=== PATIENT | female | born 1980 | race Caucasian/White ===

== ENCOUNTER 2018-03-25 17:23 | Emergency (ER) | payer OTHER ==
[2018-03-25] MEDS: NS 1,000 ML IV (16:34)
[2018-03-25] MEDS: ASPIRIN 81 MG CHEW TABLET PO (16:45)
[2018-03-25] MEDS: METOCLOPRAMIDE INJ 10MG/2ML VIAL (J2765) IV (16:45)
[2018-03-25 17:19] LABS: BASO # 0.1 10^3/uL (0.0-0.2); BASO % 1.1 % (0.0-1.0); EOS # 0.1 10^3/uL (0.0-0.50); EOS % 1.7 % (0.0-3.0); HEMATOCRIT 41.8 % (36.0-47.0); HEMOGLOBIN 14.4 g/dl (12.0-15.5); IMMATURE GRANULOCYTE % 0.1 % (0-3.0); LYMPH # 1.8 10^3/uL (1.5-4.5); LYMPH % 25.5 % (24.0-44.0); MEAN CORPUSCULAR HGB CONC 34.4 g/dl (32.0-36.5); MEAN CORPUSCULAR VOLUME 89.9 fl (80.0-96.0); MONO # 0.5 10^3/uL (0.0-0.8); MONO % 7.3 % (0.0-5.0); NEUTROPHILS # 4.6 10^3/uL (1.8-7.7); NEUTROPHILS % 64.3 % (36.0-66.0); PLATELET COUNT, AUTOMATED 572 10^3/uL (150-450); RED BLOOD COUNT 4.65 10^6/uL (4.00-5.40); RED CELL DISTRIBUTION WIDTH 12.3 % (11.5-14.5); WHITE BLOOD COUNT 7.2 10^3/uL (4.0-10.0)
[2018-03-25 17:30] LABS: ANION GAP 4 MEQ/L (8-16); BLOOD UREA NITROGEN 10 MG/DL (7-18); CALCIUM LEVEL 9.1 MG/DL (8.5-10.1); CARBON DIOXIDE LEVEL 29 MEQ/L (21-32); CHLORIDE LEVEL 107 MEQ/L (98-107); CK-MB VALUE MASS < 1.0 NG/ML (<3.6); CPK CREATINE PHOSPHOKINASE 64 U/L (26-192); CREATININE FOR GFR 0.91 MG/DL (0.55-1.30); GLOMERULAR FILTRATION RATE > 60.0 (>60); GLUCOSE, FASTING 83 MG/DL (70-100); MB/CK RELATIVE INDEX 1.56 (< OR =4); POTASSIUM SERUM 4.5 MEQ/L (3.5-5.1); SODIUM LEVEL 140 MEQ/L (136-145); TROPONIN I < 0.02 NG/ML (< 0.10)
[2018-03-25 17:36] LABS: INR 1.08; PROTHROMBIN TIME 14.1 SECONDS (12.4-14.5)
[2018-03-25 17:38] LABS: D-DIMER QUANT 296.8 ng/ml (<500)
== END 2018-03-25 18:22 | disposition left against medical advice (07) ==
LOC: M ED 17:23
DX: R07.9 Chest pain, unspecified (principal); Z82.49 Family history of ischemic heart disease and other diseases of the circulatory system
CPT/HCPCS: J2765

== ENCOUNTER 2018-08-27 11:59 | Day surgery (SDC) | payer OTHER ==
[2018-08-27] MEDS: NS 1,000 ML IV (07:00)
[~2018-08-27 11:59] MED LIST: LIDOCAINE 2% INJ 100 MG/5 ML SDV (FOR ANES.) As Ordered; PROPOFOL 200 MG/20 ML VIAL As Ordered
[2018-08-27] MEDS ORDERED: PROPOFOL 200 MG/20 ML VIAL As Ordered (14:12)
== END 2018-08-27 15:06 | disposition home or self-care (01) ==
LOC: M OPP 15:06
DX: R10.84 Generalized abdominal pain (principal); K59.00 Constipation, unspecified; D12.4 Benign neoplasm of descending colon; K63.89 Other specified diseases of intestine; Q43.8 Other specified congenital malformations of intestine; Z87.19 Personal history of other diseases of the digestive system; R19.7 Diarrhea, unspecified; K29.70 Gastritis, unspecified, without bleeding; E03.9 Hypothyroidism, unspecified; K58.9 Irritable bowel syndrome, unspecified; D47.1 Chronic myeloproliferative disease; R06.02 Shortness of breath; F41.9 Anxiety disorder, unspecified; F32.9 Major depressive disorder, single episode, unspecified; R51 Headache; F90.9 Attention-deficit hyperactivity disorder, unspecified type; G47.30 Sleep apnea, unspecified; R06.83 Snoring; K21.9 Gastro-esophageal reflux disease without esophagitis; Z79.82 Long term (current) use of aspirin; Z79.899 Other long term (current) drug therapy
CPT/HCPCS: 45385

== ENCOUNTER → 2019-03-30 | Outpatient (CLI) | payer OTHER ==
[~2019-03-30] MED LIST changes: +ASPI81CH33 PO; +CONC36TA4 PO; +LAMO100T80 PO; +LEXA1TAB PO; -LIDOCAINE 2% INJ 100 MG/5 ML SDV (FOR ANES.) As Ordered; +LINZ145C PO; +MULT1TAB10 PO; +PROHANCE 279.3MG/ML 15ML VIAL (A9576) As Ordered ONE; +PROHANCE 279.3MG/ML 5ML VIAL (A9576) As Ordered ONE; -PROPOFOL 200 MG/20 ML VIAL As Ordered; +THYR15TA PO; +TRAZ-160 PO
--- NOTE | 2019-03-31 09:23 | REP ---
MRI PELVIS WITH AND WITHOUT CONTRAST: (Attention to sacroiliac joints). Multiple sequences obtained in the axial, coronal and sagittal planes prior to and following the intravenous administration of 18 mL ProHance. I do not see MR evidence of significant arthritic change at the sacroiliac joints bilaterally. No abnormal marrow signal is seen in the sacrum or adjacent iliac bones, with no evidence of sacroiliitis. No definite bony bridging is seen at these joints. No abnormal enhancement is seen at these joints. A tiny amount of free fluid in the pelvis is likely physiologic. No abnormality is seen of the visualized soft tissues. IMPRESSION: No MRI abnormality of the sacroiliac joints. No evidence of sacroiliitis. Electronically Signed by Uriel Higuera MD 03/31/2019 04:10 P
== END ==
LOC: M RAD 16:17
PROVIDERS: ATTEND General Practice
DX: Z87.39 Personal history of other diseases of the musculoskeletal system and connective tissue (principal)
CPT/HCPCS: 72197; A9576

== ENCOUNTER → 2019-06-03 | Outpatient (CLI) | payer OTHER ==
[~2019-06-03] MED LIST changes: -PROHANCE 279.3MG/ML 15ML VIAL (A9576) As Ordered ONE; -PROHANCE 279.3MG/ML 5ML VIAL (A9576) As Ordered ONE; -TRAZ-160 PO; +TRAZ-252 PO
--- NOTE | 2019-06-06 23:06 | ECWPNPC ---
PATIENT NAME: BRY VELOZ : 1980 GENDER: FEMALE VISIT DATE: 06/03/2019 DISCHARGE DATE: 06/03/19 1257 VISIT LOCKED DATE TIME: PHYSICIAN: JOSIAH AIKEN MD RESOURCE: JOSIAH AIKEN MD REASON FOR APPOINTMENT 1. CHRONIC JOINT PAIN HISTORY OF PRESENT ILLNESS PAIN SCREENING: PATIENT HAS A COMPLAINT OF ACUTE OR CHRONIC PAIN :YES 38 YEAR OLD FEMALE PATIENT WITH A HISTORY OF CHRONIC LOW BACK PAIN. THE PATIENT DESCRIBES THE PAIN SHARP, STABBING, SHOOTING, AND CONTINUOUS WITH A PAIN SCORE OF 4-8/10 DEPENDING ON PHYSICAL ACTIVITY. THE PATIENT SAYS HER PAIN STARTS IN HER LOW BACK AREA AND RADIATES DOWN HER LEFT LEG. THE PATIENT SAYS THAT SHE HAS HAD THIS PAIN FOR ABOUT 8 MONTHS, BUT IT HAS WORSENED OVER THE PAST COUPLE MONTHS. PATIENT DENIES UNEXPLAINABLE WEIGHT LOSS, FEVER, CHILLS, NEW CHANGES ON HER URINARY OR BOWEL CONTROL. FALL RISK SCREENING: SCREENING :NO FALLS REPORTED IN THE LAST YEAR CURRENT MEDICATIONS TAKING ARMOUR THYROID 90 MG TABLET TABLET ON AN EMPTY STOMACH ORALLY ONCE A DAY TAKING ASPIRIN 81 81 MG TABLET CHEWABLE 1 TABLET ORALLY ONCE A DAY TAKING BENZOYL PEROXIDE CLEANSER 6 % LIQUID 1 APPLICATION TO AFFECTED AREA EXTERNALLY ONCE A DAY TAKING BUSPIRONE HCL 15 MG TABLET 1 TABLET ORALLY TWICE A DAY TAKING CITALOPRAM HYDROBROMIDE 20 MG TABLET 1 TABLET ORALLY ONCE A DAY TAKING LAMOTRIGINE 100 MG TABLET 1 TABLET ORALLY ONCE A DAY TAKING LUNESTA 3 MG TABLET 1 TABLET IMMEDIATELY BEFORE BEDTIME ORALLY ONCE A DAY TAKING MINOCYCLINE HCL 100 MG CAPSULE 1 CAPSULE ORALLY EVERY 12 HRS TAKING MULTIVITAMIN ADULTS - TABLET DIRECTED ORALLY TAKING PLAQUENIL 200 MG TABLET DIRECTED ORALLY BID TAKING LINZESS 145 MCG CAPSULES 1 CAPSUL P.O. DAILY TAKING TURMERIC 500 MG CAPSULE DIRECTED ORALLY TAKING XIIDRA 5 % SOLUTION 1 DROP INTO AFFECTED EYE OPHTHALMIC TWICE A DAY TAKING CONCERTA 36 MG TABLET EXTENDED RELEASE 1 TABLET IN THE MORNING ORALLY ONCE A DAY NOT-TAKING DIPHENHYDRAMINE HCL 25 MG CAPSULE 1 CAPSULE NEEDED ORALLY EVERY 8 HRS NOT-TAKING CHOLECALCIFEROL 33210 UNIT CAPSULE 1 CAPSULE ORALLY WEEKLY NOT-TAKING ZANAFLEX 4 MG TABLET 1 TABLET NEEDED ORALLY THREE TIMES A DAY MEDICATION LIST REVIEWED AND RECONCILED WITH THE PATIENT PAST MEDICAL HISTORY LOW BACK PAIN SYSTEMIC LUPUS ERYTHEMATOUS KEMI'S DISEASE ESSENTIAL THROMBOCYTOPENIA DEPRESSION/ANXIETY IBS ALLERGIES N.K.D.A. SURGICAL HISTORY TONSILLECTOMY NEUROFIBROMATOSIS [place] 1991 FAMILY HISTORY FATHER: ALIVE, DIAGNOSED WITH HYPERTENSION MOTHER: ALIVE SIBLINGS: ALIVE 2 BROTHER(S) , 1 SISTER(S) - HEALTHY. SOCIAL HISTORY GENERAL: TOBACCO USE ARE YOU A:NONSMOKER PAIN CLINIC PFS, CLERGY, PUBLIC HEALTH REFERRALS HAS THE PATIENT BEEN EDUCATED REGARDING HIS/HER PLAN OF CARE?YES HAS THE PATIENT BEEN EDUCATED REGARDING PAIN, THE RISK FOR PAIN, THE IMPORTANCE OF EFFECTIVE PAIN MANAGEMENT, AND THE PAIN ASSESSMENT PROCESS?YES LATEX QUESTIONNAIRE LATEX ALLERGY : HAVE YOU EVER DEVELOPED ANY TYPE OF REACTION AFTER HANDLING LATEX PRODUCTS SUCH RUBBER GLOVES, CONDOMS, DIAPHRAGMS, BALLOONS, SOCKS, OR UNDERWEAR?NO LATEX ALLERGY : HAVE YOU EVER DEVELOPED ANY TYPE OF REACTION DURING OR AFTER DENTAL APPOINTMENT, VAGINAL/RECTAL EXAMINATION, SURGICAL PROCEDURE, OR ANY OTHER EXPOSURE?NO LATEX RISK : HAVE YOU EVER HAD ANY DIFFICULTY BREATHING OR HIVES AFTER EATING OR HANDLING ANY FRUITS, OR VEGETABLES; SUCH KIWI, BANANAS, STONE FRUITS, OR CHESTNUTSNO LATEX RISK : DO YOU HAVE A PREVIOUS PERSONAL HISTORY OF MORE THAN NINE SURGERIES, SPINA BIFIDA, OR REPEATED CATHERTIZATIONS? NO LATEX RISK : ARE YOU FREQUENTLY EXPOSED TO LATEX PRODUCTS IN YOUR OCCUPATION?NO DATE ASKED : 06/03/2019 CAFFEINE CAFFEINE USE?YES 1 CUP COFFEE/DAY ADVANCE DIRECTIVE ADVANCE DIRECTIVE DISCUSSED WITH PATIENT:YES HCP IS ANYA [phone] DIET: REGULAR. BAPTIST [id number] TAOISM LANGUAGE LANGUAGES SPOKEN:IVORIAN DOMESTIC VIOLENCE DO YOU FEEL SAFE IN YOUR ENVIRONMENT?YES RECREATIONAL DRUG USE DRUG USE?NO OCCUPATION: ACTIVE DUTY. LEARNING BARRIERS / SPECIAL NEEDS BARRIERS TO LEARNING?NO HEARING IMPAIRED?NO VISION IMPAIRED?YES WEARS GLASSES OR CONTACTS COGNITIVELY IMPAIRED?NO PT HAS HX OF ADHD READINESS TO LEARN?YES LEARNING PREFERENCES?NO LEARNING CAPABILITIES PRESENT?YES EMOTIONAL BARRIERS?NO SPECIAL DEVICES?NO TRAINING SPECIALIST NEEDED?NO REVIEWED WITH PT 06/03/19 1140 LAS. HOSPITALIZATION/MAJOR DIAGNOSTIC PROCEDURE NO HOSPITALIZATION HISTORY. REVIEW OF SYSTEMS REVIEWED BY: PROVIDER: JOSIAH AIKEN MD . CONSTITUTIONAL: ANY CHANGE IN YOUR MEDICAL CONDITION? YES RECENTLY DIAGNOSED WITH KEMI'S, LUPUS . CHILLS NO . FEVER NO . INFECTION: DO YOU HAVE NEW INFECTIONS? NO . DO YOU HAVE HISTORY OF MRSA? NO . MUSCULOSKELETAL: ANY NEW PATTERNS OF PAIN OR NUMBNESS? YES PT REPORTS PAIN IS NOW RADIATING DOWN HER LEFT LEG . SYTEMIC LUPUS NO . GASTROENTEROLOGY: ANY NEW CHANGE IN BOWEL CONTROL? HX IBS, H PYLORI . BARRETTS ESOPHAGUS NO . CIRRHOSIS NO . HEPATITIS NO . LIVER FAILURE NO . ACID REFLUX NO . UNEXPLAINED WEIGHT LOSS NO . GENITOURINARY: ANY NEW CHANGE IN BLADDER CONTROL? NO . IS THERE A CHANCE YOU COULD BE ? NO . HEMATOLOGY/LYMPH: DO YOU TAKE ANY BLOOD THINNERS? (FOR EXAMPLE- COUMADIN, PLAVIX, AGGRENOX, PLATEL, PRADAXA, OR XARELTO) NO . WHEN WAS YOUR LAST DOSE? DATE: TIME: . LOW PLATELET COUNT YES ESSENTIAL THROMBOCYTOPENIA . SICKLE CELL DISEASE NO . VON WILLIEBRANDS NO . FACTOR V LEIDEN NO . THALLASEMIA NO . ANEMIA NO . EASY BRUISING NO . NEUROLOGY: HAVE YOU FALLEN IN THE PAST 12 MONTHS? PT ROLLED HER ANKLE AND FELL, DENIES INJURY . ANY NEW EXTREMITY NUMBNESS OR WEAKNESS? NO . HEAD INJURY NO . DEMENTIA NO . CEREBRAL PALSY NO . MULTIPLE SCLEROSIS NO . DIZZINESS NO . HEADACHE NO . STROKES NO . VERTIGO NO . CARDIOLOGY: DO YOU HAVE A PACEMAKER OR DEFIBRILLATOR? NO . ANGINA NO . HEART ATTACK NO . HEART SURGERY NO . CONGESTIVE HEART FAILURE/FLUID OVERLOAD NO . CHEST PAIN NO . HIGH BLOOD PRESSURE NO . IRREGULAR HEART BEAT NO . RESPIRATORY: HAVE YOU BEEN SICK IN THE PAST WEEK? NO . FEVER NO . FLU LIKE SYMPTOMS? NO . CPAP NO . BYPAP NO . ASTHMA NO . EMPHYSEMA NO . CHRONIC LUNG DISEASES NO . SHORTNESS OF BREATH ON EXERTION YES SEES [employer] REPRESENTATIVE . COUGH NO . SNORING NO . INTEGUMENTARY: DO YOU HAVE ANY RASHES OR OPEN SORES? NO . ALLERGIC/IMMUNO: ARE YOU ALLERGIC TO IV DYE? NO . ANY NEW ALLERGIES? NO . PSYCHIATRIC: DO YOU HAVE THOUGHTS OF HURTING YOURSELF OR SOMEONE ELSE? NO . ARE YOU ABUSED, NEGLECTED, OR IN AN UNSAFE ENVIRONMENT? NO . ENDOCRINOLOGY: ARE YOU DIABETIC? NO . THYROID DISORDER YES KEMI'S DISEASE . OTHER: DO YOU NEED ANY PRESCRIPTIONS? NO . IF YES, PLEASE LIST: ____ . ANY NEW PROBLEMS WITH YOUR MEDICATIONS? NO . WHEN DID YOU LAST EAT? ____ . WHEN DID YOU LAST DRINK? ____ . WHAT DID YOU LAST DRINK? ____ . NAME OF PERSON DRIVING YOU HOME? ____ . DO YOU HAVE ANY OTHER QUESTIONS OR CONCERNS NO . VITAL SIGNS WT 209 LBS, HT 5'9", BMI 30.86 INDEX, BP 120/77 MM HG, HR 91 /MIN, RR 18 /MIN, TEMP 98.6 F, OXYGEN SAT % 97%, SAFE IN ENV? (Y/N) YES, NA INITIALS AW 1057, REVIEWED BY: PHYLLIS. EXAMINATION GENERAL EXAMINATION: PATIENT IS ALERT O X 3 AND COOPERATIVE. LUNGS CLEAR, TO AUSCULTATION. HEART: NO MURMURS OR GALLOPS; FACIAL CRANIAL NERVES ARE GROSSLY NORMAL. GOOD SYMMETRY OF FACIAL MUSCLE MOVEMENT. NORMAL VISUAL REICH. PATIENT IS LIMPING FROM HER LEFT LEG. TENDERNESS IN THE LOW BACK AREA AND OVER THE LEFT BUTTOCK AREA NEAR THE PIRIFORMIS MUSCLE. LEFT LEG IS WEAKER AT EXTENSION AND FLEXION. STRAIGHT LEG RAISE OF THE LEFT LEG INCREASES LEFT BUTTOCK PAIN AND CAUSES NUMBNESS IN THE LEFT FOOT. MRI OF THE LUMBAR SPINE DONE ON 05/30/2019 SHOWS A DISC PROTRUSION AT L4-L5 WITH COMPRESSION OVER THE NERVE OF L5 AND A BULGING DISC AT L5-S1. ASSESSMENTS INTERVERTEBRAL DISC DISORDER WITH RADICULOPATHY OF LUMBAR REGION - M51.16 (PRIMARY) LOW BACK PAIN - M54.5 OTHER CHRONIC PAIN - G89.29 R/O LEFT PIRIFORMIS PAIN SYNDROME. TREATMENT INTERVERTEBRAL DISC DISORDER WITH RADICULOPATHY OF LUMBAR REGION CLINICAL NOTES: WE DISCUSSED SEVERAL ISSUES WITH MRS. VELOZ'S PAIN MANAGEMENT CASE. DUE TO THE LUMBAR RADICULOPATHY, I WOULD LIKE TO MOVE FORWARD WITH A LUMBAR EPIDURAL STEROID INJECTION AT THIS TIME. WE DISCUSSED THE BENEFITS, RISKS, AND ALTERNATIVES OF THE INJECTION AND THE PATIENT WOULD LIKE TO PROCEED. I WOULD LIKE TO GET A CLEARANCE FROM THE PATIENT'S TAX SERVICES INTERN AND SPEAK WITH HIM PRIOR TO THE INJECTION. THE PATIENT WILL FOLLOW UP A FEW WEEKS AFTER THE INJECTION. INSTRUCTIONS WERE GIVEN, QUESTIONS WERE ANSWERED, PATIENT REPORTS UNDERSTANDING AND AGREES WITH THE PLAN. I, CARMEN DIAZ, DOCUMENTED THE ABOVE INFORMATION ACTING A SCRIBE FOR DR. AIKEN. I HAVE REVIEWED THE ABOVE DOCUMENT, WRITTEN BY CARMEN ANTHONY AND I VERIFY THAT IT IS ACCURATE. DEAR THEE LANZA:THANK YOU FOR YOUR KIND REFERRAL OF MRS. VELOZ. IF YOU WANT TO DISCUSS HER CASE WITH ME PLEASE CALL ME AT THE PAIN CENTER AT [phone]. SINCERELY,JOSIAH AIKEN, [facility] . PREVENTIVE MEDICINE PAIN CLINIC TEACHING: PROCEDURE TEACHING PRE-PROCEDURE INSTRUCTIONS DISCUSSED WITH PT. VERBALIZED UNDERSTANDING.. PROCEDURE CODES FA211 ESTABILISHED PATIENT [facility] CHARGE [id number] CURRENT MEDS W/DOSAGES DOCUMENTED G8730 PAIN ASSESS POS TOOL F/U PLAN DOC DISPOSITION & COMMUNICATION FOLLOW UP REQUESTING AUTH ELECTRONICALLY SIGNED BY JOSIAH AIKEN MD, MD ON 06/06/2019 AT 01:36 PM EDT DISCLAIMER : THIS IS A VISIT SUMMARY EXTRACTED FROM THE [employer] CHART. IT IS NOT A COPY OF THE [employer] PROGRESS NOTE. MTDD
== END ==
LOC: M PAIN 11:00
PROVIDERS: ATTEND Anesthesiology
DX: G89.29 Other chronic pain (principal); M51.16 Intervertebral disc disorders with radiculopathy, lumbar region; M54.5 Low back pain; M32.9 Systemic lupus erythematosus, unspecified; F32.9 Major depressive disorder, single episode, unspecified; F41.9 Anxiety disorder, unspecified; K58.9 Irritable bowel syndrome, unspecified; E06.3 Autoimmune thyroiditis; D69.3 Immune thrombocytopenic purpura; Z79.82 Long term (current) use of aspirin; Z79.899 Other long term (current) drug therapy

== ENCOUNTER 2020-05-15 10:43 | Day surgery (SDC) | payer OTHER ==
[~2020-05-15] VITALS: Ht 175.3 cm; Wt 89.4 kg
[~2020-05-15 10:43] MED LIST changes: +AMBI12.52 PO; +CIPROFLOXACIN 400 MG in IV 1 EA IV ONE; +CLON1TAB17 PO; +COQ1200C3 PO; +ENOXAPARIN 40MG/0.4ML SYRINGE (J1650 PER 10MG) SC ONE; +FISH1000 PO; +GNP250TA9 PO; +HYDR200T3 PO; +HYDR500C3 PO; +LIDO1CRE2 EX; +LIDOCAINE 1% MDV 20ML VIAL SQ PRN; +MILK140C PO; +MULTCAP PO; +OMEP40CA97 PO; +PRIS50TA PO; +PROAAER10 INH; +VOLT1GEL15 TD
[2020-05-15 11:15] LABS: BASO # 0.1 10^3/uL (0.0-0.2); BASO % 1.2 % (0.0-1.0); EOS # 0.2 10^3/uL (0.0-0.5); EOS % 2.6 % (0.0-3.0); HEMATOCRIT 40.5 % (36.0-47.0); HEMOGLOBIN 13.6 g/dl (12.0-15.5); LYMPH # 1.9 10^3/uL (1.5-5.0); LYMPH % 29.4 % (24.0-44.0); MEAN CORPUSCULAR HEMOGLOBIN 34.5 pg (27.0-33.0); MEAN CORPUSCULAR HGB CONC 33.6 g/dl (32.0-36.5); MEAN CORPUSCULAR VOLUME 102.8 fl (80.0-96.0); MONO # 0.7 10^3/uL (0.0-0.8); MONO % 11.2 % (0.0-5.0); NEUTROPHILS # 3.6 10^3/uL (1.5-8.5); NEUTROPHILS % 55.3 % (36.0-66.0); PLATELET COUNT, AUTOMATED 407 10^3/uL (150-450); RED BLOOD COUNT 3.94 10^6/uL (4.00-5.40); WHITE BLOOD COUNT 6.4 10^3/uL (4.0-10.0)
[2020-05-15 11:32] LABS: HCG, SERUM QUALITATIVE NEGATIVE (NEGATIVE)
[2020-05-15] MEDS ORDERED: LR 1,000 ML IV ONE (12:15)
[2020-05-15] MEDS ORDERED: PYRI1TAB5 PO (12:29)
[2020-05-15] MEDS ORDERED: SCOP1PAT2 TOP (12:30)
[2020-05-15 12:43] LABS: APPEARANCE, URINE CLEAR (CLEAR); BACTERIA, URINE AUTO 1+ (NEGATIVE); BILIRUBIN, URINE AUTO NEGATIVE (NEGATIVE); BLOOD, URINE BLOOD 3+ (NEGATIVE); COLOR, URINE AMBER (YELLOW); GLUCOSE, URINE (UA) AUTO NEGATIVE (NEGATIVE); KETONE, URINE AUTO NEGATIVE (NEGATIVE); LEUKOCYTE ESTERASE, URINE AUTO 1+ (NEGATIVE); NITRITE, URINE AUTO POSITIVE (NEGATIVE); PROTEIN, URINE AUTO NEGATIVE (NEGATIVE); RBC, URINE AUTO 15 /HPF (0-3); SPECIFIC GRAVITY URINE AUTO 1.006 (1.002-1.035); SQUAMOUS EPITHELIAL CELL UR AU 1 /HPF (0-6); WBC, URINE AUTO 8 /HPF (0-3)
[2020-05-15] MEDS ORDERED: MIDAZOLAM INJ 2MG/2ML VIAL (J2250 PER 1MG) As Ordered ONE ×2 (13:18→15:25)
[2020-05-15] MEDS ORDERED: ePHEDrine SULFATE 25 MG/5 ML(5MG/ML) SYRINGE As Ordered ONE ×2 (13:19→16:08)
[2020-05-15] MEDS ORDERED: fentaNYL 100 MCG/2 ML INJECTION (J3010) As Ordered ONE (13:19)
[2020-05-15] MEDS ORDERED: PHENYLephrine 500MCG 5ML (100MCG/ML) SYRINGE As Ordered ONE (13:19)
[2020-05-15] MEDS ORDERED: ONDANSETRON 4MG/2ML VIAL As Ordered ONE (13:20)
[2020-05-15] MEDS ORDERED: KETOROLAC 60MG 2ML VIAL As Ordered ONE (13:20)
[2020-05-15] MEDS ORDERED: propofoL 200 MG/20 ML VIAL As Ordered ONE (13:20)
[2020-05-15] MEDS ORDERED: LIDOCAINE 2% 100MG/5ML SDV (FOR ANES.) As Ordered ONE (13:20)
[2020-05-15] MEDS ORDERED: dexameTHASONE 4 MG/ML 1ML VIAL (J1100 PER 1MG) As Ordered ONE (13:20)
[2020-05-15] MEDS ORDERED: LIDOCAINE 1% MDV 20ML VIAL As Ordered ONE (14:27)
[2020-05-15] MEDS ORDERED: [UNRECOGNIZED DRUG - MIXTURE] XX ONE (15:00)
[2020-05-15] MEDS ORDERED: ACETAMINOPHEN 1000MG 100ML IV BTL (OFIRMEV) (J0131 PER 10MG) As Ordered ONE (16:15)
[2020-05-15] MEDS ORDERED: SILVER NITRATE APPLICATOR As Ordered ONE (16:27)
--- NOTE | 2020-05-15 16:49 | ROOPDOC ---
[facility] Report Of Operation Report of Operation DATE OF PROCEDURE: 05/15/20 PREPROCEDURE DIAGNOSES: 1. Metromenorrhagia. 2. Interstitial cystitis/bladder pain. POSTPROCEDURE DIAGNOSES: Same. PROCEDURE: 1. Pudendal nerve block. 2. Diagnostic cystoscopy with hydrodistention and instillation medication (40,000 units of heparin, 20 mL's of 8.4% sodium bicarbonate, 20 mL's of 1% lidocaine, and Solu-Medrol 250 mg), 3. Diagnostic hysteroscopy. 4. Myosure endometrial curettage. SURGEON: Kayla Mcdonnell MD ADMINISTRATIVE ASSOCIATE: None ANESTHESIA: LMA. ESTIMATED BLOOD LOSS: Approximately 25 mL. IV fluids: 400 mL's lactated Ringer's Urine output: Not recorded COMPLICATIONS: None. REMARKS: Findings of a normal size anteverted uterus and left adnexa was mildly enlarged to approximately 3 cm and normal right adnexa. Bladder had multiple petechiae and 2 diverticuli without masses or polyps in the bladder dome Bilateral sides, normal urethra. Intrauterine. There was minimal amount of endometrium and no masses or polyps. Bilateral osteotomy visualized and appeared patent. DESCRIPTION OF PROCEDURE: Patient was brought back to the operating room where anesthesia was induced without difficulties. Patient was placed in a dorsal lithotomy position, draped and prepped in usual sterile fashion. Patients right ischial spine was palpated and approximately 1 cm inferior to the spine a Botox needle was placed and a total of 10 mL of 0.5% Marcaine was then injected to the space. This was repeated on patients left side and the needle was removed. Withdrawal was always performed prior to injection to ensure no blood was withdrawn. A 30 5 mm cystoscope was then advanced to the urethra under hydrodistention until the internal urethral sphincter was identified. Hydrodistention was then stopped to look for closure of the sphincter. Then hydrodistention was restarted and entry into the bladder was performed. The bladder was then emptied and a total of 500 mL of sterile water was then placed within the bladder. A total of 2 minutes was timed and waited to complete the hydrodistention of the bladder. Then 250 mL was evacuated. The bladder was examined with the above findings. Instillation of medication, as mentioned above, was then injected through the cystoscope into the bladder followed by approximately 30 mL of sterile water. The cystoscope was then removed. A weighted speculum was placed within the vagina with a right angle retractor and the anterior lip of the cervix was grasped with a single-tooth tenaculum. The cervix was then gently dilated without difficulty to a 16 curved Persaud dil ator. Speculum was then removed. A 0 5 mm hysteroscope was then assembled and machine was primed and white balance. Advanced into the cervical canal with hydrodistention and under direct visualization. Under direct visualization it was moved through the cervical canal into the uterus with the above findings. At that time, it was decided to use the myosure device. The suction was removed from the hysteroscope and the myosure reach was inserted into the hysteroscope but not quite into the uterus. The hysteroscope was backed into the lower end of the lower uterine segment or panoramic view. The myosure device was then used to take a sampling in multiple strips going from the fundus towards the internal os of the cervix (but not quite to that area, ending in the lower uterine segment). This was started in the right posterior cornual and then carried out with a total of 4 on the posterior portion of the uterus. Then a total of 1 strips were taken on patient's right lateral wall and a total of 4 strips were taken on agents anterior wall of the uterus. Another 1 strips were taken on patient's left lateral wall to complete the sampling. The uterus was then examined for any areas that were missed and sampling was taken from those areas. The uterus was then irrigated and suctioned for further inspection. At all times during the sampling was the device watched with the camera and not removed without direct visualization to avoid perforation. All water was then evacuated under suction and the hysteroscope was removed. Water deficit was calculated to be 350 cc total. Tenaculum was then removed and cervix inspected and hemostasis achieved from tenaculum site with pressure from a sponge stick. Lap, instrument, needle count was correct 2. Patient was in stable condition to the recovery room. Kayla Mcdonnell MD May 15, 2020 16:49
[2020-05-15] MEDS ORDERED: PERCOCET 5MG/325MG TAB PO PRN (17:00)
[2020-05-15] MEDS ORDERED: LR 1,000 ML IV SCH ×2 (17:00)
[2020-05-15] MEDS ORDERED: METOCLOPRAMIDE INJ 10MG/2ML VIAL (J2765 PER 1) IV PRN (17:00)
[2020-05-15] MEDS ORDERED: fentaNYL 100 MCG/2 ML INJECTION (J3010) IV PRN (17:00)
[2020-05-15] MEDS ORDERED: ONDANSETRON 4MG/2ML VIAL IV PRN (17:00)
[2020-05-15 18:23] VITALS: BP 110/68
== END 2020-05-15 18:30 | disposition home or self-care (01) ==
LOC: M SDC 10:43
PROVIDERS: ATTEND Obstetrics & Gynecology
DX: N92.1 Excessive and frequent menstruation with irregular cycle (principal); N30.10 Interstitial cystitis (chronic) without hematuria; G43.909 Migraine, unspecified, not intractable, without status migrainosus; G47.30 Sleep apnea, unspecified; K21.9 Gastro-esophageal reflux disease without esophagitis; K58.8 Other irritable bowel syndrome; Z86.711 Personal history of pulmonary embolism; F32.9 Major depressive disorder, single episode, unspecified; F41.9 Anxiety disorder, unspecified; E03.9 Hypothyroidism, unspecified; Z79.899 Other long term (current) drug therapy
CPT/HCPCS: 36415; 52260; 58558; 81001; 84703; 85025; 88305; J0131; J0744; J1100; J1650; J1885; J2250; J2370; J2405; J3010

== ENCOUNTER 2021-04-10 14:55 | Emergency (ER) | payer OTHER ==
[~2021-04-10] VITALS: Ht 175.3 cm; Wt 86.4 kg
[~2021-04-10 14:55] MED LIST changes: -CIPROFLOXACIN 400 MG in IV 1 EA IV ONE; -ENOXAPARIN 40MG/0.4ML SYRINGE (J1650 PER 10MG) SC ONE; -LIDOCAINE 1% MDV 20ML VIAL SQ PRN; +PYRI1TAB5 PO; +SCOP1PAT2 TOP
[2021-04-10 15:18] VITALS: BP 144/88
[2021-04-10 16:22] LABS: HEMATOCRIT 43.7 % (36.0-47.0); HEMOGLOBIN 14.7 g/dl (12.0-15.5); MEAN CORPUSCULAR HEMOGLOBIN 31.7 pg (27.0-33.0); MEAN CORPUSCULAR HGB CONC 33.6 g/dl (32.0-36.5); MEAN CORPUSCULAR VOLUME 94.4 fl (80.0-96.0); PLATELET COUNT, AUTOMATED 499 10^3/uL (150-450); RED BLOOD COUNT 4.63 10^6/uL (4.00-5.40); WHITE BLOOD COUNT 5.6 10^3/uL (4.0-10.0)
[2021-04-10] MEDS ORDERED: CONC27TA4 (16:22)
[2021-04-10] MEDS ORDERED: SYNT125T (16:22)
[2021-04-10] MEDS ORDERED: TRAZ-252 (16:22)
[2021-04-10] MEDS ORDERED: LINZ145C (16:22)
[2021-04-10 16:40] LABS: AMPHETAMINES LEVEL URINE NEGATIVE (NEGATIVE); BARBITURATES URINE NEGATIVE (NEGATIVE); BENZODIAZEPINES URINE NEGATIVE (NEGATIVE); CANNABINOIDS URINE NEGATIVE (NEGATIVE); COCAINE METABOLITE URINE NEGATIVE (NEGATIVE); METHADONE URINE NEGATIVE (NEGATIVE); OPIATES URINE NEGATIVE (NEGATIVE); PHENCYCLIDINE URINE NEGATIVE (NEGATIVE)
[2021-04-10 16:50] LABS: ACETAMINOPHEN LEVEL < 2.0 UG/ML (10.0-30.0); ALBUMIN 4.4 GM/DL (3.2-5.2); ALT/SGPT 29 U/L (12-78); BILIRUBIN,DIRECT 0.2 MG/DL (0.0-0.2); BILIRUBIN,TOTAL 0.5 MG/DL (0.2-1.0); BLOOD UREA NITROGEN 6 MG/DL (7-18); CALCIUM LEVEL 9.3 MG/DL (8.5-10.1); CARBON DIOXIDE LEVEL 27 MEQ/L (21-32); CHLORIDE LEVEL 101 MEQ/L (98-107); CREATININE FOR GFR 0.86 MG/DL (0.55-1.30); ETHYL ALCOHOL (ETHANOL) < 0.003 % (0.000-0.010); GLOMERULAR FILTRATION RATE > 60.0 (>58); GLUCOSE, FASTING 83 MG/DL (70-100); POTASSIUM SERUM 4.2 MEQ/L (3.5-5.1); SALICYLATE LEVEL < 1.7 MG/DL (5.0-30.0); SODIUM LEVEL 136 MEQ/L (136-145); TOTAL PROTEIN 7.6 GM/DL (6.4-8.2)
[2021-04-10 16:53] LABS: HCG, SERUM QUALITATIVE NEGATIVE (NEGATIVE)
== END 2021-04-10 16:55 | disposition left against medical advice (07) ==
LOC: M ED 14:55
DX: R45.1 Restlessness and agitation (principal); Z53.9 Procedure and treatment not carried out, unspecified reason; F43.10 Post-traumatic stress disorder, unspecified; F41.1 Generalized anxiety disorder; Z79.899 Other long term (current) drug therapy

== ENCOUNTER → 2021-04-24 | Outpatient (CLI) | payer OTHER ==
[~2021-04-24] MED LIST changes: +CLOB0.0548 TOP; +CONC27TA4; +LINZ145C; +MELA3TAB13 PO; +MIRA3350 PO; +MOBI4TAB PO; +MULT-90 PO; +OLOP0.1D OP; +PROP10TA56 PO; +REFRSOL OP; +SYNT125T; +TOPA1TAB PO; +TRAZ-252; +XIID5DRO OP
--- NOTE | 2021-04-24 14:49 | REPMRS ---
Patient History The patient states she has not had a clinical breast exam in over a year. Patient had previous chemotherapy at age 37, has history of other cancer at age 31, and is nulliparous. Family history of breast cancer at age 32 in paternal cousin. No Hormone Replacement Therapy Pt denied . Baseline mammogram. Patient states no breast complaints today. Patient has signed MRS History Sheet. Digital Woman Screen Mammo: April 24, 2021 - Exam #: [id number] Bilateral CC and MLO view(s) were taken. Technologist: RT Lori FINDINGS: The breast tissue is heterogeneously dense. This may lower the sensitivity of mammography. Screening. Digital screening (2D) mammography was performed bilaterally. Additionally, breast tomosynthesis (3D) mammography was perfomed bilaterally in the CC and MLO projections. Today's examination is the initial screening examination. By history, the patient has no complaints of a palpable breast abnormality or other significant breast complaints. The breasts are symmetric in size and shape.Dense heterogenous fibroglandular elements are seen bilaterally to such a degree that the sensitivity of the mammogram in detecting cancer is decreased. There are no masses. There is no internal architectural distortion. There are no suspicious microcalcific clusters. Skin thickening or nipple retraction is not present. IMPRESSION: BI-RADS Category 2- Benign Findings. There is no evidence of malignant alteration of the breasts. Followup examination recommended in one year. The Volpara volumetric breast density category is C, the breasts are heterogenously dense which may obscure small masses. This mammogram was read with the assistance of [employer],an FDA approved computer aided detection system for mammography. The lifetime Tyrer-Cuzick score is 14.5 %. Due to the density of the breasts, MRI/whole breast screening ultrasound is warranted. Negative x-ray reports should not delay surgical consultation if a dominant or clinically suspicious mass is present. Not all breast cancers can be identified by mammography. Therefore, we recommend that you continue to perform regular breast self-examination and physical examination and then promptly contact your physician of any concerns or changes. Adenosis and dense breasts may obscure an underlying neoplasm. Assessment: BI-RADS/ACR category 2 mammogram. Benign Findings. Recommendation Routine screening mammogram of both breasts in 1 year. Electronically Signed By: César Delaney DO 04/24/21 9244
== END ==
LOC: M WHC 13:30
PROVIDERS: ATTEND Obstetrics & Gynecology
DX: Z12.31 Encounter for screening mammogram for malignant neoplasm of breast (principal); Z85.9 Personal history of malignant neoplasm, unspecified; Z92.21 Personal history of antineoplastic chemotherapy

== ENCOUNTER → 2021-05-07 | Outpatient (CLI) | payer OTHER ==
--- NOTE | 2021-05-08 02:22 | ECWPNPC ---
PATIENT NAME: BRY VELOZ : 1980 GENDER: FEMALE VISIT DATE: 05/07/2021 DISCHARGE DATE: 05/07/21 1001 VISIT LOCKED DATE TIME: PHYSICIAN: CHERRY HUGHES RESOURCE: CHERRY HUGHES REASON FOR APPOINTMENT 1. 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 - -. FALL RISK SCREENING: SCREENING : >2 X'S, 2-3 X'S SLIPPED ON ICE, ONCE ANKLE ROLLED AND ONCE RESULTED IN HEAD INJURY WITH LOC. PAIN SCREENING: PATIENT HAS A COMPLAINT OF ACUTE OR CHRONIC PAIN :YES LOCATION OF PAIN:NECK, UPPER BACK, MID BACK, LOW BACK INTENSITY OF PAIN (SCALE OF 1 TO 10):5 WHAT DOES YOUR PAIN FEEL LIKE:ACHING, BURNING, CONTINOUS, SHARP, STABBING, TENDER, THROBBING, SORE, SHOOTING, OTHER LOW BACK FEELS LIKE A BALL WITH NEEDLES GRABBING ON AND CLUTCHING AND PULLING, SHOULDERS FEELS LIKE SHE IS CONSTANTLY FIGHTING FROM SOMEONE PULLING THEM FORWARD. FEELS LIKE KNOTS IN NECK AND HEAD THAT IS CONSTANT. DURATION:CONTINOUS, CONSTANT, AWAKENS FROM SLEEP PAIN IS INCREASED BY:PROLONGED STANDING PROLONGED SITTING PAIN IS DECREASED BY:OTHERS JUST STARTED AQUATICS, USING A ROLLER WHICH APPLIES PRESSURE TO AREAS, TENS UNIT, HEATING PAD,SALONPAS,LIDOCAINEPATCHES;CAPSASIN,VOLTAREN AND LIDOCAINE CREAM MIXED TOGETHER PAIN HAS INTERFERED WITH THE FOLLOWING: EVERYTHING NURSING NOTE: SEES BEHAVIORAL HEALTH 2X/WEEK. PAIN CENTER INTAKE QUESTIONS: DO YOU HAVE A HISTORY OF MRSA? :NO DO YOU TAKE A BLOOD THINNERS? :NO DO YOU HAVE ANY BLEEDING DISORDERS? :YES ESSENTIAL THOMBOCYTOTHEMIA(POLI #2 MUTATION) ANY NEW NUMBNESS OR WEAKNESS IN YOUR LEGS OR ARMS? :YES WAKES UP WITH TINGLING BILATERAL RING AND BABY FINGER, ALSO SOME TIMES SIDES OF HER TOES ANY PACEMAKER,DEFIBRILLATOR, OR DORSAL COLUMN STIMULATOR? :NO DO YOU HAVE ANY RASHES OR OPEN SORES? :NO ARE YOU ALLERGIC TO IV DYE? :NO ARE YOU DIABETIC? :NO ANY NEW PROBLEMS WITH YOUR MEDICATIONS? :NO HAVE YOU RECEIVED A VACCINE IN THE PAST 30 DAYS? :NO DO YOU PLAN TO RECEIVE A VACCINE IN THE NEXT 21 DAYS? :NO DO YOU NEED ANY PRESCRIPTION? :NO DO YOU TAKE ANY IMMUNOSUPPRESSIVE MEDICATIONS? :YES HYDROXYCHORAOQUINE IS THERE A CHANCE YOU COULD BE ? :NO ARE YOU BREAST FEEDING? :NO CURRENT MEDICATIONS TAKING HYDROXYCHLOROQUINE 1% CREAM 1 CAP ORALLY TWICE DAILY TAKING HYDROXYUREA 500 MG CAPSULE 1 CAPSULE ORALLY DAILY AND EVERY 2ND DAY SHE TAKES 1000MGS TAKING LINACLOTIDE 145 MCG CAPSULE 1 CAPSULE AT LEAST 30 MINUTES BEFORE THE FIRST MEAL OF THE DAY ON AN EMPTY STOMACH ORALLY ONCE A DAY TAKING DESVENLAFAXINE SUCCINATE ER 50 MG TABLET EXTENDED RELEASE 24 HOUR 1 TABLET ORALLY ONCE A DAY TAKING OMEPRAZOLE MAGNESIUM 20 MG TABLET DELAYED RELEASE 1 TABLET 30 MINUTES BEFORE MORNING MEAL ORALLY TWICE A DAY TAKING MELATONIN 3 MG TABLET 1 TABLET AT BEDTIME NEEDED ORALLY ONCE A DAY TAKING TRAZODONE HCL 50 MG TABLET 1 TABLET AT BEDTIME NEEDED ORALLY ONCE A DAY TAKING LIDOCAINE 5 % PATCH 1 PATCH REMOVE AFTER 12 HOURS EXTERNALLY ONCE A DAY TAKING CARBOXYMETHYLCELLULOSE SODIUM 0.5 % SOLUTION DIRECTED OPHTHALMIC TAKING LIFITEGRAST 5 % SOLUTION 1 DROP INTO AFFECTED EYE OPHTHALMIC TWICE A DAY TAKING MULTIVITAMINS - CAPSULE DIRECTED ORALLY TAKING MAGNESIUM 100 MG TABLET 4 TABLETS WITH A MEAL ORALLY ONCE A DAY, NOTES: FOR RESTLESS LEGS TAKING COLACE 100 MG CAPSULE 1 CAPSULE NEEDED ORALLY ONCE A DAY TAKING TAZAROTENE 0.1 % GEL 1 APPLICATION IN THE EVENING EXTERNALLY ONCE A DAY TAKING SULFACETAMIDE SODIUM-SULFUR 10-5 % EMULSION 1 APPLICATION EXTERNALLY ONCE A DAY, NOTES: GRINDER SET UP OPERATOR CENTERLESS TAKING ALBUTEROL 1-2 PUFF EVERY SIX HOURS NEEDED TAKING ARMOUR THYROID 90 MG TABLET TABLET ON AN EMPTY STOMACH ORALLY ONCE A DAY TAKING PROPRANOLOL HCL 10 MG TABLET 1 TABLET ORALLY TWICE DAILY TAKING TOPIRAMATE 50 MG TABLET 1 TABLET ORALLY TWICE DAILY TAKING CLONAZEPAM 1 MG TABLET 1 TABLET ORALLY TWICE DAILY TAKING FISH OIL 1000 MG CAPSULE 1 CAPSULE ORALLY ONCE A DAY TAKING CHOLECALCIFEROL 1.25 MG (26813 UT) CAPSULE 1 CAPSULE ORALLY WEEKLY TAKING CONCERTA 27 MG TABLET EXTENDED RELEASE 1 TABLET IN THE MORNING ORALLY ONCE A DAY TAKING MELOXICAM 7.5 MG TABLET 1 TABLET ORALLY ONCE DAILY NEEDED TAKING ASPIRIN 81 81 MG TABLET CHEWABLE 1 TABLET ORALLY ONCE A DAY NOT-TAKING ALPRAZOLAM 1 MG TABLET 1 TABLET ORALLY ONCE A DAY NOT-TAKING BENZOYL PEROXIDE CLEANSER 6 % LIQUID 1 APPLICATION TO AFFECTED AREA EXTERNALLY ONCE A DAY NOT-TAKING BUSPIRONE HCL 15 MG TABLET 1 TABLET ORALLY TWICE A DAY NOT-TAKING CITALOPRAM HYDROBROMIDE 20 MG TABLET 1 TABLET ORALLY ONCE A DAY NOT-TAKING LAMOTRIGINE 100 MG TABLET 1 TABLET ORALLY ONCE A DAY NOT-TAKING LUNESTA 3 MG TABLET 1 TABLET IMMEDIATELY BEFORE BEDTIME ORALLY ONCE A DAY NOT-TAKING MINOCYCLINE HCL 100 MG CAPSULE 1 CAPSULE ORALLY EVERY 12 HRS NOT-TAKING MULTIVITAMIN ADULTS - TABLET DIRECTED ORALLY NOT-TAKING PLAQUENIL 200 MG TABLET DIRECTED ORALLY BID NOT-TAKING LINZESS 145 MCG CAPSULES 1 CAPSUL P.O. DAILY NOT-TAKING TURMERIC 500 MG CAPSULE DIRECTED ORALLY NOT-TAKING XIIDRA 5 % SOLUTION 1 DROP INTO AFFECTED EYE OPHTHALMIC TWICE A DAY NOT-TAKING CONCERTA 36 MG TABLET EXTENDED RELEASE 1 TABLET IN THE MORNING ORALLY ONCE A DAY NOT-TAKING DIPHENHYDRAMINE HCL 25 MG CAPSULE 1 CAPSULE NEEDED ORALLY EVERY 8 HRS NOT-TAKING CHOLECALCIFEROL 27783 UNIT CAPSULE 1 CAPSULE ORALLY WEEKLY NOT-TAKING ZANAFLEX 4 MG TABLET 1 TABLET NEEDED ORALLY THREE TIMES A DAY MEDICATION LIST REVIEWED AND RECONCILED WITH THE PATIENT PAST MEDICAL HISTORY LOW BACK PAIN SYSTEMIC LUPUS ERYTHEMATOUS KEMI'S DISEASE ESSENTIAL THROMBOCYTOPENIA DEPRESSION/ANXIETY IBS BILATERAL ANKLE PAIN LEFT HIP PAIN HYPOTHYROID-HASHIMOTOS THYROIDITIS GERD/IBS- DR EUCEDA OVARIAN CYST [id number] RIGHT KNEE PAIN/ ONJURY WHILE SKIING, SHE FELT IT TWIST AND POP- GOT X-RAY FOR IT PITUITARY TUMOR-SEES NEUROSURGEON 06/05/21 DR. VALENZUELA AT [place] IN [facility] PULMONARY EMBOLISM 06/2019 PULMONARY INFARCTION 07/2019 ADHD ALLERGIES N.K.D.A. SURGICAL HISTORY TONSILLECTOMY 2005 NEUROFIBROMATOSIS [place] 1992 BENIGN TUMOR REMVOED FROM LEFT NECK BONE MARROW BIOPSY 10/2018 PELVIC ULTRASOUND 01/30/2020 FAMILY HISTORY FATHER: ALIVE, DIAGNOSED WITH HYPERTENSION MOTHER: ALIVE SIBLINGS: ALIVE 2 BROTHER(S) , 1 SISTER(S) - HEALTHY. SOCIAL HISTORY GENERAL: TOBACCO USE ARE YOU A:NONSMOKER LATEX QUESTIONNAIRE LATEX ALLERGY : HAVE YOU EVER DEVELOPED ANY TYPE OF REACTION AFTER HANDLING LATEX PRODUCTS SUCH RUBBER GLOVES, CONDOMS, DIAPHRAGMS, BALLOONS, SOCKS, OR UNDERWEAR?NO LATEX ALLERGY : HAVE YOU EVER DEVELOPED ANY TYPE OF REACTION DURING OR AFTER DENTAL APPOINTMENT, VAGINAL/RECTAL EXAMINATION, SURGICAL PROCEDURE, OR ANY OTHER EXPOSURE?NO LATEX RISK : HAVE YOU EVER HAD ANY DIFFICULTY BREATHING OR HIVES AFTER EATING OR HANDLING ANY FRUITS, OR VEGETABLES; SUCH KIWI, BANANAS, STONE FRUITS, OR CHESTNUTSNO LATEX RISK : DO YOU HAVE A PREVIOUS PERSONAL HISTORY OF MORE THAN NINE SURGERIES, SPINA BIFIDA, OR REPEATED CATHERIZATIONS? NO LATEX RISK : ARE YOU FREQUENTLY EXPOSED TO LATEX PRODUCTS IN YOUR OCCUPATION?NO DATE ASKED : 05/07/2021 ALCOHOL SCREENING DID YOU HAVE A DRINK CONTAINING ALCOHOL IN THE PAST YEAR?NO POINTS0 INTERPRETATIONNEGATIVE RECREATIONAL DRUG USE DRUG USE?NO CAFFEINE CAFFEINE USE?YES 1 CUP COFFEE/DAY CHEONDOISM [id number] LATTER DAY LANGUAGE LANGUAGES SPOKEN:CROATIAN LEARNING BARRIERS / SPECIAL NEEDS BARRIERS TO LEARNING?NO "BRAIN ISN'T WHAT IT USE TO BE-I'M SLOW AND FORGET EASILY" HEARING IMPAIRED?NO VISION IMPAIRED?YES WEARS GLASSES OR CONTACTS COGNITIVELY IMPAIRED?NO PT HAS HX OF ADHD READINESS TO LEARN?YES LEARNING PREFERENCES?YES :BOOKLETS, HANDOUTS LEARNING CAPABILITIES PRESENT?YES EMOTIONAL BARRIERS?NO SPECIAL DEVICES?NO ACCOUNT CONTACT ASSOCIATE NEEDED?NO DOMESTIC VIOLENCE DO YOU FEEL SAFE IN YOUR ENVIRONMENT?YES OCCUPATION: ACTIVE DUTY. DIET: REGULAR. - HAS THE PATIENT BEEN EDUCATED REGARDING HIS/HER PLAN OF CARE?YES HAS THE PATIENT BEEN EDUCATED REGARDING PAIN, THE RISK FOR PAIN, THE IMPORTANCE OF EFFECTIVE PAIN MANAGEMENT, AND THE PAIN ASSESSMENT PROCESS?YES ADVANCE DIRECTIVE ADVANCE DIRECTIVE DISCUSSED WITH PATIENT:YES HCP IS ANYA [phone] HOSPITALIZATION/MAJOR DIAGNOSTIC PROCEDURE IN [facility]. MENTAL HEALTH PULMONARY EMBOLISM REVIEW OF SYSTEMS CONSTITUTIONAL: ANY RECENT FEVER NO . CHILLS NO . WEIGHT CHANGE OF UNKNOWN REASONS NO . GASTROENTEROLOGY: NEW UNEXPLAINABLE CHANGES IN BOWEL CONTROL NO . CONSTIPATION NO . GENITOURINARY: ANY NEW CHANGE IN BLADDER CONTROL? NO . NEUROLOGY: NEW ONSET DIZZINESS OR NEUROLOGICAL CHANGES NOT MENTIONED NO . NEW NUMBNESS OR PAIN PATTERNS NOT MENTIONED AND PERTINENT TO TODAY'S VISIT NO . CARDIOLOGY: NEW CHEST PRESSURE NO . PATIENT DENIES NO . RESPIRATORY: UNEXPLAINABLE COUGH NO . NEW SHORTNESS OF BREATH NO . VITAL SIGNS WT 192.2 LBS, HT 5'9", BMI 28.38 INDEX, BP 141/88 MM HG, HR 90 /MIN, RR 18 /MIN, TEMP 98.0 F, OXYGEN SAT % 100%, SAFE IN ENV? (Y/N) Y, NA INITIALS RI 08:45, REVIEWED BY: Teo CARBAJAL RN. EXAMINATION GENERAL EXAMINATION: GENERALNO ACUTE DISTRESS, WELL NOURISHED AND HYDRATED. PSYCHAPPROPRIATE MOOD AND AFFECT . NECK:NO LYMPHADENOPATHY, SUPPLE. LUNGS: LUNG SOUNDS ARE CLEAR . HEART: HEART RATE REGULAR . MUSCULOSKELETAL:*, MUSCLE STRENGTH TESTING4/5 BILATERAL LOWER EXTREMITIES., ,PALPATION: POSITIVE FOR PAIN OVER L/S SPINE. POSITIVE FOR PAIN OVER L/S PARSPINALS.SPECIFIC POINT TENDERNESS OVER BILAT L4/5-L5/S1 LUMBR FACETS WITH FACET LOADING . DIAGNOSTIC:MRI L/S SPINE . ASSESSMENTS INTERVERTEBRAL DISC DISORDER WITH RADICULOPATHY OF LUMBAR REGION - M51.16 (PRIMARY) OTHER CHRONIC PAIN - G89.29 R/O LEFT PIRIFORMIS PAIN SYNDROME. TREATMENT INTERVERTEBRAL DISC DISORDER WITH RADICULOPATHY OF LUMBAR REGION START TIZANIDINE HCL TABLET, 4 MG, 1 TABLET NEEDED, ORALLY, THREE TIMES A DAY, 30 DAYS, 30, REFILLS 1 NOTES: PRINTED INFORMATION ON TIZANIDINDE GIVEN TO AND REVIEWED WITH PATIENT AND SHE VERBALIZED UNDERSTANDING. Teo CARBAJAL RN. PROCEDURE CODES FA211 ESTABILISHED PATIENT [facility] CHARGE DISPOSITION & COMMUNICATION FOLLOW UP 1 TO 2 WK F/U (REASON: MED MGMNT/TIZANIDINE) ELECTRONICALLY SIGNED BY STEPHANIE RANDHAWA ON 05/07/2021 AT 09:49 PM EDT DISCLAIMER : THIS IS A VISIT SUMMARY EXTRACTED FROM THE [employer] CHART. IT IS NOT A COPY OF THE Your [employer] PROGRESS NOTE. [place]
== END ==
LOC: M PAIN 08:30
PROVIDERS: ATTEND Nurse Practitioner Family
DX: M51.16 Intervertebral disc disorders with radiculopathy, lumbar region (principal); G89.29 Other chronic pain; K21.9 Gastro-esophageal reflux disease without esophagitis; Z86.59 Personal history of other mental and behavioral disorders; Z86.711 Personal history of pulmonary embolism; Z79.82 Long term (current) use of aspirin; Z79.899 Other long term (current) drug therapy

== ENCOUNTER → 2021-05-20 | Outpatient (CLI) | payer OTHER ==
[~2021-05-20] MED LIST changes: +OMEP40CA4 PO; -OMEP40CA97 PO
--- NOTE | 2021-05-22 01:58 | ECWPNPC ---
PATIENT NAME: BRY VELOZ : 1980 GENDER: FEMALE VISIT DATE: 05/20/2021 DISCHARGE DATE: 05/20/21 1546 VISIT LOCKED DATE TIME: PHYSICIAN: CHERRY HUGHES RESOURCE: CHERRY HUGHES REASON FOR APPOINTMENT 1. NECK/BACK HISTORY OF PRESENT ILLNESS GENERAL: BRY IS HERE FOR A FOLLOW-UP OF PERSISTENT NECK AND LOW BACK PAIN. TODAY SHE IS SUFFERING FROM SEVERE ANXIETY AND PTSD SYMPTOMS. HISTORY OF MULTIPLE COMORBIDITIES TO INCLUDE THYROID DYSFUNCTION AND BLOOD DYSCRASIA. STARTED ON TIZANIDINE 4 MG FOR NECK AND UPPER BACK PAIN/HEADACHE A FEW WEEKS AGO PER MY RECOMMENDATION. PATIENT THINKS IT HELPS WHEN SHE DOES TAKE IT FOR THE NECK PAIN BUT DOES NOTHING FOR LOW BACK PAIN. REPORTING POOR SLEEP DUE TO PAIN. DISCUSSED TREATMENT OPTIONS TO INCLUDE MEDICATION TRIALS. -. FALL RISK SCREENING: SCREENING ONE FALL THIS YEAR NO MAJOR INJURES. PAIN SCREENING: PATIENT HAS A COMPLAINT OF ACUTE OR CHRONIC PAIN :YES LOCATION OF PAIN:HEAD, BOTH SHOULDERS, LOW BACK INTENSITY OF PAIN (SCALE OF 1 TO 10):4 WHAT DOES YOUR PAIN FEEL LIKE:CONTINOUS DURATION:CONTINOUS, CONSTANT, STEADY, AWAKENS FROM SLEEP PAIN IS INCREASED BY:ACTIVITIES, PROLONGED STANDING PAIN IS DECREASED BY:OTHERS HEAT AND ICE, LIDOCAINE- WORK AT NIGHT, TENS UNITS NURSING NOTE: -. PAIN CENTER INTAKE QUESTIONS: DO YOU HAVE A HISTORY OF MRSA? :NO DO YOU TAKE A BLOOD THINNERS? :NO DO YOU HAVE ANY BLEEDING DISORDERS? :YES ESSENTIAL THOMBOCYTOTHEMIA(POLI #2 MUTATION) ANY NEW NUMBNESS OR WEAKNESS IN YOUR LEGS OR ARMS? :YES WAKES UP WITH TINGLING BILATERAL RING AND BABY FINGER, ALSO SOME TIMES SIDES OF HER TOES ANY PACEMAKER,DEFIBRILLATOR, OR DORSAL COLUMN STIMULATOR? :NO DO YOU HAVE ANY RASHES OR OPEN SORES? :NO ARE YOU ALLERGIC TO IV DYE? :NO ARE YOU DIABETIC? :NO ANY NEW PROBLEMS WITH YOUR MEDICATIONS? :NO HAVE YOU RECEIVED A VACCINE IN THE PAST 30 DAYS? :NO DO YOU PLAN TO RECEIVE A VACCINE IN THE NEXT 21 DAYS? :NO DO YOU NEED ANY PRESCRIPTION? :NO DO YOU TAKE ANY IMMUNOSUPPRESSIVE MEDICATIONS? :YES HYDROXYCHORAOQUINE IS THERE A CHANCE YOU COULD BE ? :NO ARE YOU BREAST FEEDING? :NO CURRENT MEDICATIONS TAKING HYDROXYCHLOROQUINE 1% CREAM 1 CAP ORALLY TWICE DAILY TAKING HYDROXYUREA 500 MG CAPSULE 1 CAPSULE ORALLY DAILY AND EVERY 2ND DAY SHE TAKES 1000MGS, NOTES: TAKES 1000MG EVERY 3RD DAY OF APRIL 26, 2021 TAKING LINACLOTIDE 145 MCG CAPSULE 1 CAPSULE AT LEAST 30 MINUTES BEFORE THE FIRST MEAL OF THE DAY ON AN EMPTY STOMACH ORALLY ONCE A DAY, NOTES: DOSAGE CHANGE TO 290MG OF MAY 15, 2021; PRESCRIPTION NOT FILLED OF MAY 20, 2021 TAKING DESVENLAFAXINE SUCCINATE ER 50 MG TABLET EXTENDED RELEASE 24 HOUR 1 TABLET ORALLY ONCE A DAY TAKING OMEPRAZOLE MAGNESIUM 20 MG TABLET DELAYED RELEASE 1 TABLET 30 MINUTES BEFORE MORNING MEAL ORALLY TWICE A DAY TAKING MELATONIN 3 MG TABLET 1 TABLET AT BEDTIME NEEDED ORALLY ONCE A DAY TAKING TRAZODONE HCL 50 MG TABLET 1 TABLET AT BEDTIME NEEDED ORALLY ONCE A DAY TAKING LIDOCAINE 5 % PATCH 1 PATCH REMOVE AFTER 12 HOURS EXTERNALLY ONCE A DAY TAKING CARBOXYMETHYLCELLULOSE SODIUM 0.5 % SOLUTION DIRECTED OPHTHALMIC TAKING LIFITEGRAST 5 % SOLUTION 1 DROP INTO AFFECTED EYE OPHTHALMIC TWICE A DAY TAKING MULTIVITAMINS - CAPSULE DIRECTED ORALLY TAKING MAGNESIUM 100 MG TABLET 4 TABLETS WITH A MEAL ORALLY ONCE A DAY, NOTES: FOR RESTLESS LEGS TAKING COLACE 100 MG CAPSULE 1 CAPSULE NEEDED ORALLY ONCE A DAY TAKING TAZAROTENE 0.1 % GEL 1 APPLICATION IN THE EVENING EXTERNALLY ONCE A DAY TAKING SULFACETAMIDE SODIUM-SULFUR 10-5 % EMULSION 1 APPLICATION EXTERNALLY ONCE A DAY, NOTES: ROTARY OPERATOR TAKING ALBUTEROL 1-2 PUFF EVERY SIX HOURS NEEDED TAKING ARMOUR THYROID 90 MG TABLET TABLET ON AN EMPTY STOMACH ORALLY ONCE A DAY TAKING PROPRANOLOL HCL 10 MG TABLET 1 TABLET ORALLY TWICE DAILY, STOP DATE 05/16/2021, NOTES: REASON: PATIENT REQUEST TAKING TOPIRAMATE 50 MG TABLET 1 TABLET ORALLY TWICE DAILY, NOTES: CHANGE TO 100MG TABS 1X MORNIG OF MAY 16, 2021 TAKING CLONAZEPAM 1 MG TABLET 1 TABLET ORALLY TWICE DAILY TAKING FISH OIL 1000 MG CAPSULE 1 CAPSULE ORALLY ONCE A DAY TAKING CHOLECALCIFEROL 1.25 MG (61211 UT) CAPSULE 1 CAPSULE ORALLY WEEKLY TAKING CONCERTA 27 MG TABLET EXTENDED RELEASE 1 TABLET IN THE MORNING ORALLY ONCE A DAY TAKING MELOXICAM 7.5 MG TABLET 1 TABLET ORALLY ONCE DAILY NEEDED TAKING ASPIRIN 81 81 MG TABLET CHEWABLE 1 TABLET ORALLY ONCE A DAY TAKING TIZANIDINE HCL 4 MG TABLET 1 TABLET NEEDED ORALLY THREE TIMES A DAY TAKING TOPIRAMATE 25 MG TABLET 1 TABLET ORALLY TWICE A DAY, NOTES: 25MG 2XDAILY AT NIGHT TAKING PLAQUENIL 200 MG TABLET DIRECTED ORALLY TWICE A DAILY NOT-TAKING ALPRAZOLAM 1 MG TABLET 1 TABLET ORALLY ONCE A DAY NOT-TAKING BENZOYL PEROXIDE CLEANSER 6 % LIQUID 1 APPLICATION TO AFFECTED AREA EXTERNALLY ONCE A DAY NOT-TAKING BUSPIRONE HCL 15 MG TABLET 1 TABLET ORALLY TWICE A DAY NOT-TAKING CITALOPRAM HYDROBROMIDE 20 MG TABLET 1 TABLET ORALLY ONCE A DAY NOT-TAKING LAMOTRIGINE 100 MG TABLET 1 TABLET ORALLY ONCE A DAY NOT-TAKING LUNESTA 3 MG TABLET 1 TABLET IMMEDIATELY BEFORE BEDTIME ORALLY ONCE A DAY NOT-TAKING MINOCYCLINE HCL 100 MG CAPSULE 1 CAPSULE ORALLY EVERY 12 HRS NOT-TAKING MULTIVITAMIN ADULTS - TABLET DIRECTED ORALLY NOT-TAKING LINZESS 145 MCG CAPSULES 1 CAPSUL P.O. DAILY NOT-TAKING TURMERIC 500 MG CAPSULE DIRECTED ORALLY NOT-TAKING XIIDRA 5 % SOLUTION 1 DROP INTO AFFECTED EYE OPHTHALMIC TWICE A DAY NOT-TAKING CONCERTA 36 MG TABLET EXTENDED RELEASE 1 TABLET IN THE MORNING ORALLY ONCE A DAY NOT-TAKING DIPHENHYDRAMINE HCL 25 MG CAPSULE 1 CAPSULE NEEDED ORALLY EVERY 8 HRS NOT-TAKING CHOLECALCIFEROL 74984 UNIT CAPSULE 1 CAPSULE ORALLY WEEKLY NOT-TAKING ZANAFLEX 4 MG TABLET 1 TABLET NEEDED ORALLY THREE TIMES A DAY MEDICATION LIST REVIEWED AND RECONCILED WITH THE PATIENT PAST MEDICAL HISTORY LOW BACK PAIN SYSTEMIC LUPUS ERYTHEMATOUS KEMI'S DISEASE ESSENTIAL THROMBOCYTOPENIA DEPRESSION/ANXIETY IBS BILATERAL ANKLE PAIN LEFT HIP PAIN HYPOTHYROID-HASHIMOTOS THYROIDITIS GERD/IBS- DR EUCEDA OVARIAN CYST [id number] RIGHT KNEE PAIN/ ONJURY WHILE SKIING, SHE FELT IT TWIST AND POP- GOT X-RAY FOR IT PITUITARY TUMOR-SEES NEUROSURGEON 06/05/21 DR. VALENZUELA AT [place] IN [facility] PULMONARY EMBOLISM 06/2019 PULMONARY INFARCTION 07/2019 ADHD ALLERGIES SCHEDULED 21 MAY 2021, DR. CH, [facility] SURGICAL HISTORY TONSILLECTOMY 2005 NEUROFIBROMATOSIS [place] 1992 BENIGN TUMOR REMVOED FROM LEFT NECK BONE MARROW BIOPSY 10/2018 PELVIC ULTRASOUND 01/30/2020 FAMILY HISTORY FATHER: ALIVE, DIAGNOSED WITH HYPERTENSION MOTHER: ALIVE SIBLINGS: ALIVE 2 BROTHER(S) , 1 SISTER(S) - HEALTHY. SOCIAL HISTORY GENERAL: TOBACCO USE ARE YOU A:NONSMOKER LATEX QUESTIONNAIRE LATEX ALLERGY : HAVE YOU EVER DEVELOPED ANY TYPE OF REACTION AFTER HANDLING LATEX PRODUCTS SUCH RUBBER GLOVES, CONDOMS, DIAPHRAGMS, BALLOONS, SOCKS, OR UNDERWEAR?NO LATEX ALLERGY : HAVE YOU EVER DEVELOPED ANY TYPE OF REACTION DURING OR AFTER DENTAL APPOINTMENT, VAGINAL/RECTAL EXAMINATION, SURGICAL PROCEDURE, OR ANY OTHER EXPOSURE?NO LATEX RISK : HAVE YOU EVER HAD ANY DIFFICULTY BREATHING OR HIVES AFTER EATING OR HANDLING ANY FRUITS, OR VEGETABLES; SUCH KIWI, BANANAS, STONE FRUITS, OR CHESTNUTSNO LATEX RISK : DO YOU HAVE A PREVIOUS PERSONAL HISTORY OF MORE THAN NINE SURGERIES, SPINA BIFIDA, OR REPEATED CATHERIZATIONS? NO LATEX RISK : ARE YOU FREQUENTLY EXPOSED TO LATEX PRODUCTS IN YOUR OCCUPATION?NO DATE ASKED : 05/20/2021 ALCOHOL USE: NO. ALCOHOL SCREENING DID YOU HAVE A DRINK CONTAINING ALCOHOL IN THE PAST YEAR?NO POINTS0 INTERPRETATIONNEGATIVE RECREATIONAL DRUG USE DRUG USE?NO CAFFEINE CAFFEINE USE?YES 1 CUP COFFEE/DAY JUDAISM [id number] TENRIISM LANGUAGE LANGUAGES SPOKEN:CUBAN LEARNING BARRIERS / SPECIAL NEEDS BARRIERS TO LEARNING?NO "BRAIN ISN'T WHAT IT USE TO BE-I'M SLOW AND FORGET EASILY" HEARING IMPAIRED?YES TBI VISION IMPAIRED?YES WEARS GLASSES OR CONTACTS COGNITIVELY IMPAIRED?NO PT HAS HX OF ADHD READINESS TO LEARN?YES LEARNING PREFERENCES?YES :BOOKLETS, HANDOUTS LEARNING CAPABILITIES PRESENT?YES EMOTIONAL BARRIERS?YES COMMENTS CHRONIC SEVERE PTSD, ANXIETY MANIC SEVERE, PANIC ATTACKS SPECIAL DEVICES?YES : CPAP, INHALER SHARE HOLDER NEEDED?NO DOMESTIC VIOLENCE DO YOU FEEL SAFE IN YOUR ENVIRONMENT?YES OCCUPATION: ACTIVE DUTY. DIET: REGULAR. - HAS THE PATIENT BEEN EDUCATED REGARDING HIS/HER PLAN OF CARE?YES HAS THE PATIENT BEEN EDUCATED REGARDING PAIN, THE RISK FOR PAIN, THE IMPORTANCE OF EFFECTIVE PAIN MANAGEMENT, AND THE PAIN ASSESSMENT PROCESS?YES ADVANCE DIRECTIVE ADVANCE DIRECTIVE DISCUSSED WITH PATIENT:YES HCP IS ANYA [phone] HOSPITALIZATION/MAJOR DIAGNOSTIC PROCEDURE IN [facility]. MENTAL HEALTH PULMONARY EMBOLISM TONSILLECTOMY 2004 REVIEW OF SYSTEMS CONSTITUTIONAL: ANY RECENT FEVER NO . CHILLS NO . WEIGHT CHANGE OF UNKNOWN REASONS NO . GASTROENTEROLOGY: NEW UNEXPLAINABLE CHANGES IN BOWEL CONTROL NO . CONSTIPATION NO . GENITOURINARY: ANY NEW CHANGE IN BLADDER CONTROL? NO . NEUROLOGY: NEW ONSET DIZZINESS OR NEUROLOGICAL CHANGES NOT MENTIONED NO . NEW NUMBNESS OR PAIN PATTERNS NOT MENTIONED AND PERTINENT TO TODAY'S VISIT NO . CARDIOLOGY: NEW CHEST PRESSURE NO . PATIENT DENIES NO . RESPIRATORY: UNEXPLAINABLE COUGH NO . NEW SHORTNESS OF BREATH NO . VITAL SIGNS WT 189.4 LBS, HT 5'9", BMI 27.97 INDEX, BP 145/90 MM HG, HR 91 /MIN, RR 18 /MIN, TEMP 99.2 F, OXYGEN SAT % 96%, SAFE IN ENV? (Y/N) Y, NA INITIALS SC 14:49T.ROSEANNE MA. EXAMINATION GENERAL EXAMINATION: GENERALPLEASANT, ANXIOUS, WEEPY. BREASTS:THE BREASTS ARE SYMMETRIC ON INSPECTION BILATERALLY WITH NO NOTED DIMPLING OR NIPPLE RETRACTION. THERE ARE NO PALPABLE BREAST OR AXILLARY MASSES OR LESIONS ON CLINICAL BREAST EXAMINATION BILATERALLY. NO NIPPLE DISCHARGE NOTED.. LUNGS:CLEAR TO AUSCULTATION BILATERALLY, NO WHEEZES, RHONCHI, RALES. ASSESSMENTS INTERVERTEBRAL DISC DISORDER WITH RADICULOPATHY OF LUMBAR REGION - M51.16 (PRIMARY) MYALGIA, OTHER SITE - M79.18 R/O LEFT PIRIFORMIS PAIN SYNDROME. TREATMENT INTERVERTEBRAL DISC DISORDER WITH RADICULOPATHY OF LUMBAR REGION INCREASE COLACE CAPSULE, 100 MG, 1 CAPSULE NEEDED, ORALLY, BID, 30 DAY(S), 60 CAPSULE, REFILLS 2 CONTINUE TIZANIDINE HCL TABLET, 4 MG, 1 TABLET NEEDED, ORALLY, THREE TIMES A DAY START TRAMADOL HCL TABLET, 50 MG, 1 TABLET NEEDED, ORALLY, 3X DAILY FOR CHRONIC PAIN MDD3, 30 DAYS, 90, REFILLS 1 NOTES: ISTOP REGISTRY REVIEWED AND DEMONSTRATES COMPLLIANCE. ( , [facility] NARCOTIC AGREEMENT WAS REVIEWED AND SIGNED TODAY BY THE PATIENT. SEE ATTACHED DOCUMENT FOR FULL DETAILS; SPECIFIC ISSUES WERE REVIEWED: 1) KEEP PAIN MEDS IN THEIR ORIGINAL BOTTLES AND ANY WEEKLY PLANNERS ARE TO BE BROUGHT TO THE PAIN CENTER AT EVERY VISIT. 2) THE PATIENT IS NOT TO INCREASE DOSING OR TIMING OF THEIR PAIN MEDICATION WITHOUT SPECIFIC DIRECTION OF THEIR PAIN CENTERPROVIDER (NOT ER OR OTHER PROVIDERS). 3) ALL PAIN MEDS ARE TO BE KEPT SECURED, IN A LOCKED BOX. 4) NO PAIN MEDS ARE TO BE SHARED WITH ANY OTHER PERSON FOR ANY REASON. 5) NO PAIN MEDS MAY BE TAKEN FROM ANY FRIENDS OR RELATIVES FOR ANY REASON 6) NO MEDS OR SUBSTANCES WHICH ARE NOT LEGAL ARE TO BE USED- NO MARIJUANA, NO COCAINE, AMPHETAMINES, HEROIN, OR OTHERS ARE EVER TO BE USED. 7)URINE TESTING IS DONE TO ACCOUNT FOR MEDS AND SUBSTANCES BEING TAKEN AND WILL BE DONE RANDOMLY. PROCEDURE CODES FA211 ESTABILISHED PATIENT [facility] CHARGE DISPOSITION & COMMUNICATION FOLLOW UP 2 MONTHS (REASON: MED MGMNT) ELECTRONICALLY SIGNED BY STEPHANIE RANDHAWA ON 05/21/2021 AT 03:40 PM EDT DISCLAIMER : THIS IS A VISIT SUMMARY EXTRACTED FROM THE [employer] CHART. IT IS NOT A COPY OF THE [employer] PROGRESS NOTE. [place]
== END ==
LOC: M PAIN 14:45
PROVIDERS: ATTEND Nurse Practitioner Family
DX: M51.16 Intervertebral disc disorders with radiculopathy, lumbar region (principal); M79.18 Myalgia, other site; M32.9 Systemic lupus erythematosus, unspecified; E06.3 Autoimmune thyroiditis; D69.6 Thrombocytopenia, unspecified; F32.9 Major depressive disorder, single episode, unspecified; F41.9 Anxiety disorder, unspecified; F90.9 Attention-deficit hyperactivity disorder, unspecified type; K58.9 Irritable bowel syndrome, unspecified; E03.9 Hypothyroidism, unspecified; K21.9 Gastro-esophageal reflux disease without esophagitis; Z86.711 Personal history of pulmonary embolism; Z79.1 Long term (current) use of non-steroidal anti-inflammatories (NSAID); Z79.82 Long term (current) use of aspirin; Z79.899 Other long term (current) drug therapy

== ENCOUNTER → 2021-06-13 | Outpatient (REF) ==
--- NOTE | 2021-06-13 15:01 | REP ---
INDICATION: SOB. COMPARISON: Comparison chest x-ray March 25, 2018. TECHNIQUE: Two views.. FINDINGS: The lungs are well inflated and free of infiltrate. The pleural angles are sharp. The heart size is normal. Pulmonary vasculature is not increased. No significant bony abnormality is seen. IMPRESSION: Negative chest x-ray. <Electronically signed by Sujit Carias > 06/13/21 1306
--- NOTE | 2021-06-13 16:00 | REP ---
INDICATION: SOB. COMPARISON: None. TECHNIQUE: Four views FINDINGS: Four views are provided. There is an ulna minus variant. Distal tibia and fibula shows a tiny ossific density at the distal tip of the radial styloid suggesting old avulsion. Carpal bones their joint spaces are grossly intact. There is no abnormal widening of the scapholunate or lunatotriquetral joint. The mid carpal row grossly unremarkable. Subtle lucency in the distal pole of the scaphoid may reflect small bone cyst. CMC joints of the thumb and 2nd digit shows some minimal spurring. I do not see significant soft tissue swelling over the dorsal aspect of the wrist. Metacarpals show no fracture avulsion. MCP joints are grossly intact. There is a tiny ossific density along the radial aspect proximal phalanx right 3rd finger with no acute fracture. Phalanges and IP joints intact. IMPRESSION: 1. 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 2. Minor degenerative changes at the 1st CMC joint. No visible or displaced fracture. 3. Subtle lucency distal pole the scaphoid may reflect a small bone cyst. 4. No acute fracture, subluxation or dislocation. No abnormal erosive change. <Electronically signed by Johnathon Donohue > 06/13/21 [id number]
== END ==
LOC: M PLAIMG 14:18
PROVIDERS: ATTEND Internal Medicine
DX: R06.02 Shortness of breath (principal)

== ENCOUNTER → 2021-07-24 | Outpatient (REF) ==
[~2021-07-24] MED LIST changes: -SCOP1PAT2 TOP; +TRAN1DIS4 TOP
== END ==
LOC: M PLAIMG 10:58
PROVIDERS: ATTEND Internal Medicine
DX: M54.2 Cervicalgia (principal); M54.5 Low back pain